=== PATIENT | female | born 1970 | race Caucasian/White ===

== ENCOUNTER 2020-10-28 10:09 | Outpatient (CLI) | payer BC | END 2020-10-28 10:10 | disposition home or self-care (01) | LOC: CSHCT 10:09 | PROVIDERS: ATTEND Internal Medicine | DX: R10.13 Epigastric pain (principal); R19.4 Change in bowel habit | CPT/HCPCS: 74170 ==

== ENCOUNTER 2021-03-16 16:27 | Outpatient (CLI) | payer BC | END 2021-03-16 16:28 | disposition home or self-care (01) | LOC: CSHRAD 16:27 | PROVIDERS: ATTEND Internal Medicine Rheumatology | DX: M25.561 Pain in right knee (principal); M54.2 Cervicalgia; M47.812 Spondylosis without myelopathy or radiculopathy, cervical region; Z98.1 Arthrodesis status | CPT/HCPCS: 72040 ==